=== PATIENT | male | born 1975 | race Caucasian/White ===

== ENCOUNTER 2017-11-15 23:55 | Emergency (ER) | payer BC ==
[~2017-11-15] VITALS: Ht 180.3 cm; Wt 88.9 kg
[2017-11-16 00:18] VITALS: Ht 180.3 cm; Wt 88.9 kg
[2017-11-16 01:32] LABS: BASOPHIL % 0.1 % (0-2); PLATELET COUNT 227 x10^3mcL (130-400); RED CELL DISTRIBUTION WIDTH 13.1 % (11.5-14.5)
[2017-11-16 01:41] LABS: CALCIUM 8.4 mg/dL (8.5-10.1); CARBON DIOXIDE 25.8 mmol/L (21-32); CHLORIDE SERUM 101 mmol/L (98-107); CREATININE SERUM 1.2 mg/dL (0.7-1.3); GFR1 > 60 mL/min; GLUCOSE SERUM 108 mg/dL (74-106); POTASSIUM SERUM 3.5 mmol/L (3.5-5.1); SODIUM SERUM 138 mmol/L (136-145)
[2017-11-16 01:46] LABS: ALBUMIN 3.4 g/dL (3.4-5.0); ALKALINE PHOSPHATASE 70 U/L (46-116); ALT/SGPT 25 U/L (16-63); AST/SGOT 14 U/L (15-37); BILIRUBIN TOTAL 0.33 mg/dL (0.20-1.00); LIPASE 587 IU/L (73-393); TOTAL PROTEIN, SERUM 6.6 g/dL (6.4-8.2)
[2017-11-16 03:50] VITALS: BP 105/53
== END 2017-11-16 03:50 | disposition home or self-care (01) ==
LOC: ED 23:55
PROVIDERS: Emergency Medicine
DX: R19.7 Diarrhea, unspecified (principal); R10.13 Epigastric pain; Z88.0 Allergy status to penicillin
CPT/HCPCS: 36415; 87046; 87046-59